=== PATIENT | female | born 1950 | race Caucasian/White ===

== ENCOUNTER → 2016-09-21 | Outpatient (CLI) | payer MEDICARE, OTHER ==
[~2016-09-21] MED LIST: ASPIRIN EC81 MG PO; COMBIVENT0.074 GM/I INH; LIPITOR TAB 2020 MG PO; METFORMIN HCL500 M2 PO; NEURONTIN 300300 MG PO; NITROSTAT0.4 MG SL; NORCO 7.5-3251 EACH PO; PLAVIX 75 MG TA75 MG PO; PRILOSEC OTC20 MG PO; RANEXA500 MG PO; SYMBICORT 160-1 INHA INH; SYNTHROID88 MCG PO; VENTOLIN/PROVE0.5 ML INH; ZESTRIL20 MG PO; ZYRTEC10 MG PO
== END ==
LOC: CT 07-19 08:00
DX: R19.02 Left upper quadrant abdominal swelling, mass and lump (principal)
CPT/HCPCS: 36415; 74160; 82565; 84520; J7050; Q9962

== ENCOUNTER → 2016-09-26 | Outpatient (CLI) | payer MEDICARE, OTHER | LOC: EXRD 08-09 15:00 → MAMO 08-10 13:40 | DX: Z12.31 Encounter for screening mammogram for malignant neoplasm of breast (principal); Z78.0 Asymptomatic menopausal state; M85.89 Other specified disorders of bone density and structure, multiple sites | CPT/HCPCS: 77080; G0202 ==

== ENCOUNTER 2020-04-28 18:36 | Emergency (ER) | payer MEDICARE, OTHER ==
[~2020-04-28 18:36] MED LIST changes: +ALDACTONE25 MG PO; +AMOX TR-K CLV1 EAC4 PO; +BREO ELLIPTA 21 EACH INH; +COMBIVENT RESPIM4 GM INH; +LASIX20 MG PO; -LIPITOR TAB 2020 MG PO; +LISINOPRIL5 MG PO; +MELATONIN5 M2 PO; +MYCOSTATIN100000 UTS PO; -NEURONTIN 300300 MG PO; +NEURONTIN300 MG PO; +TYLENOL W/CODEIN1 EA PO
[2020-04-28 19:32] LABS: HEMOGLOBIN 11.2 gm/dl (12.3-15.3); RED BLOOD COUNT 4.26 M/UL (4.00-5.10)
[2020-04-28 19:54] LABS: BUN/CREATININE RATIO 16 (0-10)
[2020-04-28] MEDS ORDERED: PROVENTIL HFA6.7 GM INH (21:01)
[2020-04-28] MEDS ORDERED: VIBRAMYCIN 100100 MG PO (21:01)
== END 2020-04-28 21:43 | disposition home or self-care (01) ==
LOC: ER1 18:36
PROVIDERS: Family Medicine
DX: C34.12 Malignant neoplasm of upper lobe, left bronchus or lung (principal); E11.9 Type 2 diabetes mellitus without complications; J44.9 Chronic obstructive pulmonary disease, unspecified; I50.20 Unspecified systolic (congestive) heart failure; Z99.81 Dependence on supplemental oxygen; Z95.1 Presence of aortocoronary bypass graft; Z98.890 Other specified postprocedural states; Z88.2 Allergy status to sulfonamides; Z88.1 Allergy status to other antibiotic agents; Z87.891 Personal history of nicotine dependence; Z20.822 Contact with and (suspected) exposure to COVID-19
CPT/HCPCS: 71045; 80053; 82550; 82553; 83874; 83880; 84484; 85025; 93005; 99285; U0002

== ENCOUNTER 2020-05-21 04:43 | Inpatient (IN) | payer MEDICARE, OTHER ==
[~2020-05-21] VITALS: Ht 154.9 cm; Wt 59.0 kg
[~2020-05-21 04:43] MED LIST changes: +PROVENTIL HFA6.7 GM INH; +VIBRAMYCIN 100100 MG PO
[2020-05-21 05:13] LABS: HEMOGLOBIN 13.1 gm/dl (12.3-15.3); RED BLOOD COUNT 4.81 M/UL (4.00-5.10); WHITE BLOOD COUNT 17.6 K/UL (4.5-11.0)
[2020-05-21 05:37] LABS: BUN/CREATININE RATIO 19 (0-10)
[2020-05-21] MEDS ORDERED: ZESTRIL10 MG PO (11:35)
[2020-05-21] MEDS ORDERED: GLUCOPHAGE500 MG PO (11:35)
[2020-05-21] MEDS ORDERED: OMEPRAZOLE40 MG PO (11:35)
[2020-05-21] MEDS ORDERED: NEURONTIN300 MG PO (14:58)
[2020-05-21] MEDS ORDERED: METOPROLOL TART25 MG PO (15:00)
[2020-05-21] MEDS ORDERED: LIPITOR40 MG PO (20:11)
[2020-05-22 06:34] LABS: HEMOGLOBIN 11.7 gm/dl (12.3-15.3); RED BLOOD COUNT 4.37 M/UL (4.00-5.10)
[2020-05-22 06:36] LABS: WHITE BLOOD COUNT 11.2 K/UL (4.5-11.0)
[2020-05-24 04:04] LABS: HEMOGLOBIN 10.6 gm/dl (12.3-15.3); RED BLOOD COUNT 3.96 M/UL (4.00-5.10); WHITE BLOOD COUNT 13.3 K/UL (4.5-11.0)
[2020-05-24 04:28] LABS: BUN/CREATININE RATIO 10 (0-10)
[2020-05-25 03:28] LABS: HEMOGLOBIN 10.8 gm/dl (12.3-15.3); RED BLOOD COUNT 4.09 M/UL (4.00-5.10); WHITE BLOOD COUNT 11.2 K/UL (4.5-11.0)
[2020-05-25 04:06] LABS: BUN/CREATININE RATIO 9 (0-10)
--- NOTE | 2020-05-25 19:38 | NUR ---
1330 Patient returned to Room 5126 per PACU Staff. Patient awake, but sleepy. Respirations even/unlabored. Denies pain/discomfort at this time. V/S stable.
[2020-05-26 03:19] LABS: HEMOGLOBIN 10.8 gm/dl (12.3-15.3); RED BLOOD COUNT 4.02 M/UL (4.00-5.10)
[2020-05-26 03:44] LABS: BUN/CREATININE RATIO 9 (0-10)
--- NOTE | 2020-05-26 12:18 | NUR ---
1015 Spoke with patient's son per phone regarding meeting with Dr Balderas at 3:00pm today. He stated he would be here.
[2020-05-27 20:26] LABS: BUN/CREATININE RATIO 11 (0-10)
[2020-05-28 03:40] LABS: HEMOGLOBIN 10.2 gm/dl (12.3-15.3); RED BLOOD COUNT 3.84 M/UL (4.00-5.10)
[2020-05-28 04:10] LABS: BUN/CREATININE RATIO 10 (0-10)
[2020-05-28] MEDS ORDERED: NEURONTIN300 MG PO (14:53)
[2020-05-28] MEDS ORDERED: PROVENTIL HFA6.7 GM INH (14:53)
[2020-05-28] MEDS ORDERED: METOPROLOL TART25 MG PO (14:53)
[2020-05-28] MEDS ORDERED: LEVOFLOXACIN500 MG PO (14:53)
[2020-05-28] MEDS ORDERED: DOCUSATE SODIU100 MG PO (14:53)
== END 2020-05-28 18:27 | disposition home health service (06) | DRG 166 ==
LOC: ER1 04:43 → CDU 10:59 → M/S 10:59
PROVIDERS: Emergency Medicine; Internal Medicine; Physician Assistant Medical; Surgery; ADMIT Internal Medicine
PROC: 07B74ZX Excision of Thorax Lymphatic, Percutaneous Endoscopic Approach, Diagnostic (ICD-10-PCS; principal; 2020-05-25 11:15)
PROC: 02HV33Z Insertion of Infusion Device into Superior Vena Cava, Percutaneous Approach (ICD-10-PCS; 2020-05-26)
PROC: B548ZZA Ultrasonography of Superior Vena Cava, Guidance (ICD-10-PCS; 2020-05-26)
PROC: 0DH68UZ Insertion of Feeding Device into Stomach, Via Natural or Artificial Opening Endoscopic (ICD-10-PCS; 2020-05-27)
PROC: 3E0G76Z Introduction of Nutritional Substance into Upper GI, Via Natural or Artificial Opening (ICD-10-PCS; 2020-05-27)
DX: J69.0 Pneumonitis due to inhalation of food and vomit (principal); G93.41 Metabolic encephalopathy; E43 Unspecified severe protein-calorie malnutrition; I50.22 Chronic systolic (congestive) heart failure; M87.352 Other secondary osteonecrosis, left femur; J96.11 Chronic respiratory failure with hypoxia; J96.12 Chronic respiratory failure with hypercapnia; K56.41 Fecal impaction; R91.8 Other nonspecific abnormal finding of lung field; Z20.822 Contact with and (suspected) exposure to COVID-19; I25.10 Atherosclerotic heart disease of native coronary artery without angina pectoris; R13.10 Dysphagia, unspecified; I11.0 Hypertensive heart disease with heart failure; F17.210 Nicotine dependence, cigarettes, uncomplicated; E11.9 Type 2 diabetes mellitus without complications; E78.5 Hyperlipidemia, unspecified; J44.9 Chronic obstructive pulmonary disease, unspecified; E03.9 Hypothyroidism, unspecified; K86.89 Other specified diseases of pancreas; Z95.1 Presence of aortocoronary bypass graft; Z90.81 Acquired absence of spleen; I25.2 Old myocardial infarction; Z99.81 Dependence on supplemental oxygen; Z95.5 Presence of coronary angioplasty implant and graft; Z88.1 Allergy status to other antibiotic agents; Z88.2 Allergy status to sulfonamides; Z79.82 Long term (current) use of aspirin; Z79.899 Other long term (current) drug therapy
CPT/HCPCS: 0240U; 36415; 36600; 70450; 71045; 71275; 74230; 80048; 80053; 80307; 81001; 82140; 82550; 82553; 82803; 82962; 83605; 83690; 83735; 83874; 83880; 84439; 84443; 84484; 85025; 85027; 85610; 85730; 87040; 88342; 90471; 92526; 92610; 92611-GN; 94640; 94760; 96365; 96366; 96367; 96368; 96372; 96375; 99285; G0480; J0696; J1170; J1650; J2270; J2405; J2543; J2704; J2710; J3010; J3370; J3480; J7030; J7040; J7120; Q9967

== ENCOUNTER 2020-08-22 19:52 | Emergency (ER) | payer MEDICARE, OTHER ==
[~2020-08-22 19:52] MED LIST changes: +DOCUSATE SODIU100 MG PO; +GLUCOPHAGE500 MG PO; +LEVOFLOXACIN500 MG PO; +LIPITOR40 MG PO; +METOPROLOL TART25 MG PO; +OMEPRAZOLE40 MG PO; +ZESTRIL10 MG PO
[2020-08-22 21:06] LABS: HEMOGLOBIN 10.7 gm/dl (12.3-15.3); RED BLOOD COUNT 4.1 M/UL (4.00-5.10); WHITE BLOOD COUNT 12.3 K/UL (4.5-11.0)
[2020-08-22 21:24] LABS: BUN/CREATININE RATIO 30 (0-10)
[2020-08-22] MEDS ORDERED: ZOFRAN ODT 4 MG4 MG PO (23:44)
[2020-08-22] MEDS ORDERED: OMNICEF 300 MG300 MG PO (23:44)
== END 2020-08-23 | disposition home or self-care (01) ==
LOC: ER1 19:52
PROVIDERS: Family Medicine
DX: R91.8 Other nonspecific abnormal finding of lung field (principal); N39.0 Urinary tract infection, site not specified; Z79.899 Other long term (current) drug therapy; G89.29 Other chronic pain; N28.9 Disorder of kidney and ureter, unspecified; Z74.01 Bed confinement status; Z93.1 Gastrostomy status
CPT/HCPCS: 71045; 80053; 81001; 82550; 82553; 83874; 84484; 85025; 87086; 93005; 96374; 96375; 99285; J0696; J2405